=== PATIENT | male | born 1950 | race Asian ===

== ENCOUNTER → 2016-07-06 | Outpatient (CLI) | payer OTHER ==
[2016-07-06 09:26] LABS: BASOPHIL % 0.4 % (0-2); PLATELET COUNT 189 x10^3mcL (130-400); RED CELL DISTRIBUTION WIDTH 12.3 % (11.5-14.5)
[2016-07-06 09:52] LABS: ALBUMIN 3.7 g/dL (3.4-5.0); ALKALINE PHOSPHATASE 100 U/L (46-116); ALT/SGPT 33 U/L (16-63); AST/SGOT 26 U/L (15-37); BILIRUBIN TOTAL 0.84 mg/dL (0.20-1.00); CALCIUM 8.5 mg/dL (8.5-10.1); CARBON DIOXIDE 29.3 mmol/L (21-32); CHLORIDE SERUM 108 mmol/L (98-107); FREE T4 1.16 ng/dL (0.76-1.46); GFR1 > 60 mL/min; GLUCOSE SERUM 103 mg/dL (74-106); HDL CHOLESTEROL 47 mg/dL (40-60); POTASSIUM SERUM 4.5 mmol/L (3.5-5.1); SODIUM SERUM 142 mmol/L (136-145); TOTAL PROTEIN, SERUM 6.8 g/dL (6.4-8.2); TRIGLYCERIDES 55 mg/dL (<150)
[2016-07-06 09:54] LABS: CHOLESTEROL 108 mg/dL (<200); CHOLESTEROL/HDL RATIO 2.3
[2016-07-07 10:53] LABS: VITAMIN D 25-HYDROXY 43.5 ng/mL (30.0-100.0)
== END | disposition home or self-care (01) ==
LOC: LB 09:04
DX: R73.03 Prediabetes (principal); E53.8 Deficiency of other specified B group vitamins; E55.9 Vitamin D deficiency, unspecified; E89.0 Postprocedural hypothyroidism
CPT/HCPCS: 84439

== ENCOUNTER → 2017-01-18 | Outpatient (CLI) | payer OTHER ==
[2017-01-18 10:39] LABS: BASOPHIL % 0.8 % (0-2); PLATELET COUNT 195 x10^3mcL (130-400); RED CELL DISTRIBUTION WIDTH 12.5 % (11.5-14.5)
[2017-01-18 10:41] LABS: ALBUMIN 3.9 g/dL (3.4-5.0); ALKALINE PHOSPHATASE 98 U/L (46-116); ALT/SGPT 33 U/L (16-63); AST/SGOT 26 U/L (15-37); BILIRUBIN TOTAL 1.2 mg/dL (0.20-1.00); CALCIUM 8.6 mg/dL (8.5-10.1); CARBON DIOXIDE 29.3 mmol/L (21-32); CHLORIDE SERUM 106 mmol/L (98-107); CHOLESTEROL 139 mg/dL (<200); GFR1 > 60 mL/min; GLUCOSE SERUM 100 mg/dL (74-106); HDL CHOLESTEROL 46 mg/dL (40-60); POTASSIUM SERUM 4.5 mmol/L (3.5-5.1); SODIUM SERUM 141 mmol/L (136-145); TOTAL PROTEIN, SERUM 7.5 g/dL (6.4-8.2); TRIGLYCERIDES 102 mg/dL (<150)
== END | disposition home or self-care (01) ==
LOC: LB 09:50
DX: R73.03 Prediabetes (principal); E89.0 Postprocedural hypothyroidism; E53.8 Deficiency of other specified B group vitamins; E55.9 Vitamin D deficiency, unspecified
CPT/HCPCS: 84439

== ENCOUNTER → 2017-07-17 | Outpatient (CLI) | payer OTHER ==
[2017-07-17 09:33] LABS: BASOPHIL % 0.6 % (0-2); PLATELET COUNT 207 x10^3mcL (130-400); RED CELL DISTRIBUTION WIDTH 12.6 % (11.5-14.5)
[2017-07-17 09:51] LABS: ALKALINE PHOSPHATASE 89 U/L (46-116); ALT/SGPT 36 U/L (16-63); AST/SGOT 31 U/L (15-37); BILIRUBIN TOTAL 1.2 mg/dL (0.20-1.00); CALCIUM 8.6 mg/dL (8.5-10.1); CHLORIDE SERUM 106 mmol/L (98-107); CHOLESTEROL 118 mg/dL (<200); CHOLESTEROL/HDL RATIO 2.5; FREE T4 1.17 ng/dL (0.76-1.46); GFR1 > 60 mL/min; GLUCOSE SERUM 97 mg/dL (74-106); HDL CHOLESTEROL 47 mg/dL (40-60); POTASSIUM SERUM 4.4 mmol/L (3.5-5.1); SODIUM SERUM 142 mmol/L (136-145); TOTAL PROTEIN, SERUM 7.5 g/dL (6.4-8.2); TRIGLYCERIDES 78 mg/dL (<150)
== END | disposition home or self-care (01) ==
LOC: LB 09:04
DX: R73.09 Other abnormal glucose (principal); E89.0 Postprocedural hypothyroidism; E53.8 Deficiency of other specified B group vitamins; E55.9 Vitamin D deficiency, unspecified; E78.2 Mixed hyperlipidemia
CPT/HCPCS: 84439

== ENCOUNTER → 2018-01-24 | Outpatient (CLI) | payer OTHER ==
[2018-01-24 09:36] LABS: BASOPHIL % 1.1 % (0-2); PLATELET COUNT 202 x10^3mcL (130-400); RED CELL DISTRIBUTION WIDTH 12.6 % (11.5-14.5)
[2018-01-24 11:03] LABS: ALBUMIN 3.9 g/dL (3.4-5.0); ALKALINE PHOSPHATASE 95 U/L (46-116); ALT/SGPT 30 U/L (16-63); AST/SGOT 26 U/L (15-37); CARBON DIOXIDE 28.1 mmol/L (21-32); CHLORIDE SERUM 105 mmol/L (98-107); CREATININE SERUM 1.1 mg/dL (0.7-1.3); FREE T4 1.11 ng/dL (0.76-1.46); GFR1 > 60 mL/min; GLUCOSE SERUM 101 mg/dL (74-106); HDL CHOLESTEROL 48 mg/dL (40-60); POTASSIUM SERUM 4.6 mmol/L (3.5-5.1); SODIUM SERUM 140 mmol/L (136-145); TOTAL PROTEIN, SERUM 7.5 g/dL (6.4-8.2); TRIGLYCERIDES 50 mg/dL (<150)
[2018-01-24 11:05] LABS: CHOLESTEROL 121 mg/dL (<200); CHOLESTEROL/HDL RATIO 2.5
[2018-01-25 05:38] LABS: VITAMIN D 25-HYDROXY 40.6 ng/mL (30.0-100.0)
== END | disposition home or self-care (01) ==
LOC: LB 09:07
DX: R73.09 Other abnormal glucose (principal); E89.0 Postprocedural hypothyroidism; E55.9 Vitamin D deficiency, unspecified; E53.8 Deficiency of other specified B group vitamins; E78.2 Mixed hyperlipidemia
CPT/HCPCS: 84439

== ENCOUNTER 2018-06-20 13:55 | Inpatient (IN) | payer OTHER ==
[~2018-06-20] VITALS: Ht 167.6 cm; Wt 71.0 kg
[2018-06-20 13:57] VITALS: Ht 167.6 cm; Wt 71.0 kg
--- NOTE | 2018-06-20 14:23 | NUR ---
PT PRESENTS TO ED WITH C/O CHEST PAIN FOR THE PAST 3 WEEKS. STS THAT HE STOPPED TAKING HIS ASPIRIN 3 MONTHS AGO. STS THAT HE DOESN'T FEEL PAIN, BUT DESCRIBES THE FEELING "DISCOMFORT", STS THAT THE DISCOMFORT DOES NOT TRAVEL ELSEWHERE. PATIENT POINTS TO THE STERNAL REGION. DENIES PAIN ELSEWHERE. AWAITING MSE
[2018-06-20 14:37] LABS: BASOPHIL % 0.8 % (0-2); PLATELET COUNT 219 x10^3mcL (130-400); RED CELL DISTRIBUTION WIDTH 13.2 % (11.5-14.5)
[2018-06-20 14:50] LABS: CARBON DIOXIDE 28.6 mmol/L (21-32); CHLORIDE SERUM 103 mmol/L (98-107); GFR1 > 60 mL/min; GLUCOSE SERUM 98 mg/dL (74-106); POTASSIUM SERUM 4.1 mmol/L (3.5-5.1); SODIUM SERUM 141 mmol/L (136-145)
[2018-06-20 14:55] LABS: ALBUMIN 4.3 g/dL (3.4-5.0); ALKALINE PHOSPHATASE 106 U/L (46-116); ALT/SGPT 37 U/L (16-63); AST/SGOT 31 U/L (15-37); BILIRUBIN TOTAL 1.2 mg/dL (0.20-1.00)
--- NOTE | 2018-06-20 15:10 | NUR ---
PATIENT LAYING ON GURNEY- NO S/S OF DISTRESS NOTED. BREATHING EVEN AND UNLABORED. WILL CONTINUE TO MONITOR.
[2018-06-20] MEDS ORDERED: SYNTHROID0.075 MG PO (16:09)
[2018-06-20] MEDS ORDERED: ATORVASTATIN CA40 M1 PO (16:10)
[2018-06-20] MEDS ORDERED: MASON NATURAL1000 IU PO (16:11)
--- NOTE | 2018-06-20 16:26 | NUR ---
PROVIDED REPORT TO LES FREEMAN TELE- FOR FURTHER CARE OF PATIENT.
[2018-06-20 16:33] LABS: CHOLESTEROL/HDL RATIO 2.4; PHOSPHOROUS 3.6 mg/dL (2.5-4.9)
[2018-06-20 16:44] LABS: FREE T4 1.18 ng/dL (0.76-1.46); FREE THYROXINE INDEX 3.4 ug/dL (1.4-4.5); T3 TOTAL 0.79 ng/mL
[2018-06-20 16:54] VITALS: BP 156/87
--- NOTE | 2018-06-20 17:06 | NUR ---
RECEIVED PT FROM ER. PT ADMIT FOR CHEST PAIN, PT IS A/O X4, VERBAL RESPONSIVE, ABLE TO TELL WHAT HE NEEDS. LUNG SOUND CLEAR BILATERAL, NO COUGH, NO SOB PT IS ON TELE 1, BIGEMINY AT THIS TIME, PT DENY ANY CHEST PAIN OR PALPITATION, BOWEL SOUND PRESENT ALL 4 QUADRANTS, NO DISTENTION, NO TENDER. PEDAL PULSE PRESENT BOTH FEET, NO EDEMA, IV AT RIGHT AC, NO LEAKING, NO INFILTRATION. ALL ADLS ASSIST, ALL NEED MET, CALL LIGHT IN REACH, WILL CONTINUE TO MONITOR.
--- NOTE | 2018-06-20 17:49 | NUR ---
AAO TIMES 4. COOPERATIVE AND PLEASANT. DR TRIPP SAW HIM, A STRESS TEST IS PLANNED FOR TOMORROW. DR TRIPP IS AWARE OF HIS BIGEMINY, AND ORDERED LOPRESSOR PO NOW, IT WAS GIVEN. TELE # 1 SR WITH BEGEMINY. NO C/O PAIN, HE JUST FEELS THE FLUTTER WITH THE IRREGULAR RHYTHM. IV SITE RFA CDI. NO SOB. VS'S STABLE.
--- NOTE | 2018-06-20 19:37 | NUR ---
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
--- NOTE | 2018-06-20 20:02 | NUR ---
HERE NOW TO STAY OVER.
[2018-06-20 20:38] VITALS: BP 136/83
--- NOTE | 2018-06-20 21:36 | NUR ---
EXTENSION TUBING APPLIED TO [place],EASIER HANDLING FOR NURSE AND PATIENT.NO COMPLAINT,AMBULATORY RESTROOM.VOIDING QS.
[2018-06-21 02:01] LABS: microscopic required? NO
[2018-06-21 02:10] LABS: UA SPECIFIC GRAVITY 1.015 (1.005-1.035); urine erythrocyte NEGATIVE (NEGATIVE)
[2018-06-21 04:56] LABS: BASOPHIL % 0.5 % (0-2); PLATELET COUNT 193 x10^3mcL (130-400); RED CELL DISTRIBUTION WIDTH 12.6 % (11.5-14.5)
[2018-06-21 05:01] LABS: CALCIUM 8.8 mg/dL (8.5-10.1); CARBON DIOXIDE 29.5 mmol/L (21-32); CHLORIDE SERUM 105 mmol/L (98-107); GFR1 > 60 mL/min; GLUCOSE SERUM 94 mg/dL (74-106); POTASSIUM SERUM 4.7 mmol/L (3.5-5.1); SODIUM SERUM 142 mmol/L (136-145)
[2018-06-21 05:09] VITALS: BP 108/71
--- NOTE | 2018-06-21 06:39 | NUR ---
I AND O MEASURED.AM MEDS GIVEN.NPO X MED.STRESS TEST 1330.BREAKFAST OK.
--- NOTE | 2018-06-21 06:45 | NUR ---
PATIENT IN RESTROOM,VOIDING.BRP.STEADY GAIT.
--- NOTE | 2018-06-21 07:13 | NUR ---
RECEIVED PT FROM [facility]. PT RESTING IN BED, AAOX4. NO ACUTE DISTRESS NOTED AT THIS TIME. ON TELE 1 SHOWING NSR WITH PVCS, HR: 62. RESPIRATIONS EVEN AND UNLABORED ON ROOM AIR. IV AT RAC WITH NO ERYTHEMA, IVF INFUSING WELL. BED IN LOWEST POSITION AND CALL LIGHT WITHIN REACH. PRESENT AT BEDSIDE. WILL CONTINUE TO MONITOR.
[2018-06-21 08:33] VITALS: BP 122/71
[2018-06-21 11:34] VITALS: BP 121/713
[2018-06-21 11:35] VITALS: BP 121/71
--- NOTE | 2018-06-21 12:35 | NUR ---
PT SENT DOWN TO [facility] [facility] AT THIS TIME. NO ACUTE DISTRESS NOTED.
--- NOTE | 2018-06-21 14:00 | NUR ---
RAPID RESPONSE CALLED, MYSELF, , M[employer] EXEC[employer]IVE[employer]S [employer]RIVE AT [facility]. PT IS DIAPHORETIC AND COMPLAINING OF CHEST PAIN WITH LOW BP. PER GIVE 2L BOLUS AND INITIATE DOPAMINE AT 5 MCG/KG/MIN. ORDERS FOLLOWED OUT AND PT TAKEN TO ICU WITHOUT INCIDENT.
--- NOTE | 2018-06-21 14:12 | NUR ---
PT CAME TO FLOOR AFTER BLOOD PRESSURE DROPPED DURING STRESS TEST. ALERT AND ORIENTED. DR. TRIPP IN ROOM WITH PT. REPORT RECEIVED FROM CORRY SALDANA [address] [place].
--- NOTE | 2018-06-21 14:37 | NUR ---
PER , INITIATE HEPARIN DRIP PROTOCOL. ORDERS PLACED.
--- NOTE | 2018-06-21 15:04 | NUR ---
HEPARIN DRIP INITIATED AT 852 UNITS/HR PER PROTOCOL S/P BOLUS OF 4300 UNITS, VENESSA RN VERIFY MYSELF AND GOLDY SALDANA.
--- NOTE | 2018-06-21 15:05 | NUR ---
REPORT GIVEN TO [employer] AND [employer]ARD SUPERVISOR RN AT [facility], RN NAME ESTEPHANIA, ALL QUESTIONS AND CONCERNS ADDRESSED AT THIS TIME.
[2018-06-21 15:16] VITALS: BP 121/71
[2018-06-21 15:18] VITALS: BP 116/67
--- NOTE | 2018-06-21 15:27 | NUR ---
HEPARIN INFUSION STARTED AT 852 UNITS Q 1 HOUR. RESTING COMFORTABLY WITH AT BEDSIDE. CALL LIGHT WITHIN REACH.
--- NOTE | 2018-06-21 16:00 | NUR ---
REPORT GIVEN TO CCT RN AT THIS TIME. ALL QUESTIONS AND CONCERNS ADDRESSED AT THIS TIME.
--- NOTE | 2018-06-21 16:01 | NUR ---
[facility] HERE TO TAKE PT TO [facility]. REPORT GIVEN BY SANDRA HUNTLEY RN. IV X 2 RETAINED. LEFT WITH HEPARIN INFUSING.
--- NOTE | 2018-06-21 16:14 | NUR ---
PT TAKEN BY [facility] AT THIS TIME OFF UNIT, NO INCIDENT OCCURED, PT ON FULL KNOCK OUT HAND.
== END 2018-06-21 16:15 | disposition short-term general hospital (02) | DRG 311 ==
LOC: ED 13:55 → DU 16:11 → IC 06-21 13:54
PROVIDERS: Emergency Medicine; ADMIT Family Medicine
DX: I20.0 Unstable angina (principal); E78.5 Hyperlipidemia, unspecified; Z79.82 Long term (current) use of aspirin; E78.00 Pure hypercholesterolemia, unspecified; I49.3 Ventricular premature depolarization; E03.9 Hypothyroidism, unspecified; Z82.49 Family history of ischemic heart disease and other diseases of the circulatory system
CPT/HCPCS: 83880; 84439; 90732; A9500; J1644; J2785; J7030; Q0092

== ENCOUNTER → 2019-01-09 | Outpatient (CLI) | payer OTHER ==
[~2019-01-09] MED LIST: ATORVASTATIN CA40 M1 PO; MASON NATURAL1000 IU PO; SYNTHROID0.075 MG PO
[2019-01-09 09:26] LABS: CALCIUM 8.5 mg/dL (8.5-10.1); CARBON DIOXIDE 29.3 mmol/L (21-32); CHLORIDE SERUM 106 mmol/L (98-107); GFR1 > 60 mL/min; GLUCOSE SERUM 99 mg/dL (74-106); POTASSIUM SERUM 4.9 mmol/L (3.5-5.1); SODIUM SERUM 142 mmol/L (136-145)
[2019-01-09 10:12] LABS: ALBUMIN 3.9 g/dL (3.4-5.0); BILIRUBIN TOTAL 1.06 mg/dL (0.20-1.00); TOTAL PROTEIN, SERUM 7.3 g/dL (6.4-8.2)
[2019-01-09 10:13] LABS: ALKALINE PHOSPHATASE 94 U/L (46-116); ALT/SGPT 28 U/L (16-63); AST/SGOT 27 U/L (15-37); CHOLESTEROL 118 mg/dL (<200); CHOLESTEROL/HDL RATIO 2.6; HDL CHOLESTEROL 45 mg/dL (40-60); TRIGLYCERIDES 48 mg/dL (<150)
[2019-01-09 10:34] LABS: FREE T4 1.09 ng/dL (0.76-1.46)
[2019-01-09 11:14] LABS: BASOPHIL % 0.7 % (0-2); PLATELET COUNT 191 x10^3mcL (130-400); RED CELL DISTRIBUTION WIDTH 12.8 % (11.5-14.5)
== END | disposition home or self-care (01) ==
LOC: LB 08:41
DX: R73.09 Other abnormal glucose (principal); E89.0 Postprocedural hypothyroidism; E55.9 Vitamin D deficiency, unspecified; E53.8 Deficiency of other specified B group vitamins; E78.2 Mixed hyperlipidemia
CPT/HCPCS: 84439